=== PATIENT | male | born 1995 | race African-American/Black ===

== ENCOUNTER 2023-03-06 19:45 | Emergency (ER) | payer OTHER ==
[2023-03-06] MEDS ORDERED: fentaNYL 50 mcg/mL 1 mL Vial ONE (19:57)
[2023-03-06] MEDS ORDERED: Lidocaine 1% PF 5 ML VIAL ONE (20:02)
== END 2023-03-06 20:34 ==
LOC: ERS 19:45 → EEVIPCON 19:45 → ERS 20:34
DX: S43.014A Anterior dislocation of right humerus, initial encounter (principal); F17.200 Nicotine dependence, unspecified, uncomplicated; X50.0XXA Overexertion from strenuous movement or load, initial encounter
CPT/HCPCS: 23650; 96374; J3010

== ENCOUNTER 2023-06-18 16:21 | Emergency (ER) | payer OTHER ==
[2023-06-18] MEDS ORDERED: Ibuprofen 200 MG TAB ONE (17:19)
[2023-06-18 17:25] LABS: #Basophils 0.1 thou/uL (0.0-0.2); #Eosinphils 0.3 thou/uL (0.0-0.7); #Monocytes 0.7 thou/uL (0.11-0.59); #Neutrophils 9.3 thou/uL (1.40-6.50); %Basophils 0.6 % (0.0-1.0); %Eosinophils 2.1 % (0.0-10.0); %Lymphocytes 15.2 % (21.0-51.0); %Monocytes 5.7 % (0.0-10.0); %Neutrophils 76.2 % (42.0-75.0); Hematocrit 41.4 % (42.0-52.0); Hemoglobin 13.5 g/dL (14.0-18.0); Mean Corpuscular HGB CONC 32.6 g/dL (32.0-36.0); Mean Corpuscular Hemoglobin 30.8 pg (27.0-31.0); Mean Corpuscular Volume 94.5 fl (78.0-98.0); Platelet Count 204 10x3/uL (130-400); RBC Distribution Width 11.5 % (11.5-14.5); Red Blood Cell (RBC) Count 4.38 mill/uL (4.70-6.10); White Blood Cell (WBC) Count 12.3 10x3/uL (4.8-10.8)
[2023-06-18 17:35] LABS: Bilirubin Negative (Negative); Blood, Urine Negative (Negative); CAUTI Indications for Culture Pelvic or flank pain; Clarity Clear (Clear); Glucose, Urine (Dipstick) Normal (Negative); Ketone, Urine Negative (Negative); Leukocyte Negative Leu/uL (Negative); Nitrite Negative (Negative); Protein, Urine (Dipstick) Negative (Neg-Trace); RBC/HPF 0-3 HPF (0-3); Specific Gravity, Urine 1.013 (1.002-1.036); Squamous Epithelial None Seen HPF (0-3); Urobilinogen Normal mg/dL (Less than 2); WBC/HPF 0-3 HPF (0-3)
[2023-06-18 17:37] LABS: Bacteria/HPF 1+ HPF (None Seen)
[2023-06-18 17:38] LABS: Urine Culture Reflex No No
[2023-06-18 17:48] LABS: ALT (SGPT) 25 U/L (8-55); AST (SGOT) 36 U/L (5-34); Albumin 4.3 g/dL (3.5-5.0); Alkaline Phosphatase 139 U/L (40-110); Anion Gap 13 mmol/L (10-20); BUN (Urea Nitrogen) 8 mg/dL (8.9-20.6); Bilirubin, Total 0.8 mg/dL (0.2-1.2); Calc. Creatinine Clearance 0 mL/min (70-130); Calcium 9.2 mg/dL (7.8-10.44); Carbon Dioxide 22 mmol/L (22-29); Chloride 107 mmol/L (98-107); Estimated GFR 118; Globulin 3.5 g/dL (2.4-3.5); Glucose 89 mg/dL (70-105); Lipase 12 U/L (8-78); Potassium 3.8 mmol/L (3.5-5.1); Protein, Total 7.8 g/dL (6.0-8.3); Sodium 138 mmol/L (136-145)
== END 2023-06-18 18:43 | disposition home or self-care (01) ==
LOC: ERS 16:21
DX: R10.30 Lower abdominal pain, unspecified (principal)
CPT/HCPCS: 36415; 80053; 81001; 83690; 85025; 99284

== ENCOUNTER 2023-07-23 19:54 | Emergency (ER) | payer OTHER ==
[2023-07-23] MEDS ORDERED: fentaNYL 50 mcg/mL 1 mL Vial ONE (20:40)
[2023-07-23] MEDS ORDERED: Ketamine In 0.9 % NaCl 50 MG/5 ML SYRINGE ONE (20:41)
[2023-07-23] MEDS ORDERED: Ondansetron PF 4 MG/2 ML Vial ONE (20:41)
== END 2023-07-23 22:40 ==
LOC: EEVIPCON 19:54 → ERS 19:54
DX: S43.004A Unspecified dislocation of right shoulder joint, initial encounter (principal); W21.09XA Struck by other hit or thrown ball, initial encounter; Y93.73 Activity, racquet and hand sports
CPT/HCPCS: 23650; 96374; 96375; J2405; J3010; J3490

== ENCOUNTER 2023-10-02 22:23 | Emergency (ER) | payer OTHER ==
[2023-10-03] MEDS ORDERED: HYDROcodone/Acetaminophen 10/325 mg Tablet ONE (00:36)
== END 2023-10-03 01:50 ==
LOC: ERS 22:23
DX: S43.401A Unspecified sprain of right shoulder joint, initial encounter (principal); Z55.6 Problems related to health literacy; X58.XXXA Exposure to other specified factors, initial encounter; Y93.67 Activity, basketball

== ENCOUNTER 2024-08-11 13:51 | Emergency (ER) | payer OTHER, SELFPAY ==
[2024-08-11] MEDS ORDERED: Ketorolac Tromethamine 30 MG (1 mL) VIAL ONE (14:19)
[2024-08-11] MEDS ORDERED: HYDROcodone/Acetaminophen 5/325 mg Tablet ONE (14:19)
[2024-08-11] MEDS ORDERED: Amoxicillin/Potassium Clav 875 MG TAB ONE (14:27)
== END 2024-08-11 15:18 | disposition home or self-care (01) ==
LOC: ERS 13:51
DX: K04.7 Periapical abscess without sinus (principal); F17.210 Nicotine dependence, cigarettes, uncomplicated
CPT/HCPCS: 96372; 99282; J1885